=== PATIENT | male | born 1945 | race Caucasian/White ===

== ENCOUNTER → 2018-03-01 09:22 | Outpatient (REF) | payer MEDICARE, OTHER, SELFPAY ==
[2018-03-01 22:49] LABS: Anion Gap 9.6 mmol/L (3-11); BUN 14 mg/dL (7-18); CO2 28.4 mmol/L (21.0-32.0); Calcium 9.1 mg/dL (8.5-10.1); Chloride 105 mmol/L (98-107); Cholesterol 149 mg/dL (50-200); Estimated GFR 54.42 (mL/min/1.73m2); Glucose 92 mg/dL (70-100); HDL Cholesterol 56 mg/dL (40-60); LDL CHOLESTEROL 86 mg/dL (<100); Potassium 4.4 mmol/L (3.5-5.1); Sodium 143 mmol/L (136-145); Triglyceride 66 mg/dL (30-150)
[2018-03-04 10:47] LABS: PSA, Screening 0.8 ng/ml (0-6.5)
== END ==
LOC: NCHCN 09:22
PROVIDERS: PCP Internal Medicine; Visit Provider Internal Medicine
DX: Z80.42 Family history of malignant neoplasm of prostate (principal); Z12.5 Encounter for screening for malignant neoplasm of prostate; I34.0 Nonrheumatic mitral (valve) insufficiency; D12.6 Benign neoplasm of colon, unspecified; E78.5 Hyperlipidemia, unspecified
CPT/HCPCS: 80048; 80061; 83721; 84153

== ENCOUNTER 2019-12-09 09:00 | Outpatient (REF) | payer MEDICARE, OTHER, SELFPAY ==
[2019-12-09 21:26] LABS: Anion Gap 10.9 mmol/L (3-11); BUN 18 mg/dL (7-18); CO2 25.1 mmol/L (21.0-32.0); CREATININE 1.27 mg/dL (0.70-1.30); Calcium 9.2 mg/dL (8.5-10.1); Calculated LDL 162 mg/dL (<100); Chloride 106 mmol/L (98-107); Cholesterol 229 mg/dL (<200); Estimated GFR 55.75 (mL/min/1.73m2); Glucose 94 mg/dL (74-106); HDL Cholesterol 54 mg/dL (40-60); Potassium 4.3 mmol/L (3.5-5.1); Sodium 142 mmol/L (136-145); Triglyceride 65 mg/dL (<150)
== END 2019-12-09 09:20 ==
LOC: NCHCN 09:00
PROVIDERS: PCP Internal Medicine; Visit Provider Internal Medicine
DX: I10 Essential (primary) hypertension (principal); Z12.5 Encounter for screening for malignant neoplasm of prostate; Z80.42 Family history of malignant neoplasm of prostate
CPT/HCPCS: 80048; 80061

== ENCOUNTER 2020-06-01 22:17 | Outpatient (REF) | payer MEDICARE, OTHER, SELFPAY ==
[2020-06-01 22:59] LABS: Abs Immature Grans 0.01 10^3/uL (0.0-0.06); Absolute Basophil Count 0.04 10^3/uL (0.0-0.2); Absolute Eosinophil Count 0.24 10^3/uL (0.0-0.7); Absolute Lymphocyte Count 1.49 10^3/uL (1.2-3.4); Absolute Monocyte Count 0.46 10^3/uL (0.1-0.8); Absolute Neutrophil Count 2.43 10^3/uL (1.2-6.7); Basophils % 0.9; Eosinophils % 5.1; HCT 41.6 % (40.0-50.0); HGB 13.8 g/dL (13.5-17.5); Immature Grans % 0.2; Lymphocytes % 31.9; MCH 31.9 pg (27.0-33.0); MCHC 33.2 % (32.0-36.0); MCV 96.1 fL (80-95); MPV 9.5 fL (8.0-11.0); Monocytes % 9.9; Nucleated RBC 0 %; Platelet Count 218 10^3/uL (130-400); RBC 4.33 10^6/uL (4.36-5.78); RDW-SD 46.2 fL; WBC 4.67 10^3/uL (4.4-10.8)
== END 2020-06-01 22:37 ==
LOC: LBN 22:17
PROVIDERS: PCP Internal Medicine; Visit Provider Student in an Organized Health Care Education/Training Program
DX: E78.5 Hyperlipidemia, unspecified (principal); I50.9 Heart failure, unspecified; I48.91 Unspecified atrial fibrillation
CPT/HCPCS: 85025; 85610

== ENCOUNTER 2020-06-02 22:07 | Outpatient (REF) | payer MEDICARE, OTHER, SELFPAY ==
[2020-06-02 22:45] LABS: INR 1.1 (0.9-1.1); Prothrombin Time 10.8 sec (9.3-11.0)
== END 2020-06-02 22:27 ==
LOC: NCHCN 22:07
PROVIDERS: PCP Internal Medicine; Visit Provider Student in an Organized Health Care Education/Training Program
DX: I48.91 Unspecified atrial fibrillation (principal)
CPT/HCPCS: 85610

== ENCOUNTER 2020-12-08 14:24 | Outpatient (REF) | payer MEDICARE, OTHER, SELFPAY ==
[2020-12-08 14:53] LABS: BUN 17 mg/dL (7-18); CREATININE 1.2 mg/dL (0.70-1.30); Calcium 9.1 mg/dL (8.5-10.1); Chloride 106 mmol/L (98-107); Estimated GFR 59.35 (mL/min/1.73m2); Glucose 93 mg/dL (74-106); Potassium 4.1 mmol/L (3.5-5.1); Sodium 143 mmol/L (136-145)
== END 2020-12-08 14:25 | disposition home or self-care (01) ==
LOC: NCHCN 14:24
PROVIDERS: Internal Medicine; PCP Internal Medicine; Visit Provider Internal Medicine
DX: I50.9 Heart failure, unspecified (principal); Z85.47 Personal history of malignant neoplasm of testis; Z80.42 Family history of malignant neoplasm of prostate; Z12.5 Encounter for screening for malignant neoplasm of prostate
CPT/HCPCS: 80048; 84153

== ENCOUNTER 2021-12-26 16:01 | Outpatient (REF) | payer MEDICARE, OTHER, SELFPAY ==
[2021-12-26 15:07] LABS: BUN 18 mg/dL (7-18); CREATININE 1.3 mg/dL (0.70-1.30); Calcium 9.4 mg/dL (8.5-10.1); Chloride 101 mmol/L (98-107); Estimated GFR 53.96 (mL/min/1.73m2); Glucose 93 mg/dL (74-106); Potassium 4.1 mmol/L (3.5-5.1); Sodium 137 mmol/L (136-145)
== END 2021-12-26 16:02 | disposition home or self-care (01) ==
LOC: NCHCN 16:01
PROVIDERS: PCP Internal Medicine; Visit Provider Internal Medicine
DX: I50.9 Heart failure, unspecified (principal)
CPT/HCPCS: 80048

== ENCOUNTER 2023-01-12 15:21 | Outpatient (REF) | payer MEDICARE, SELFPAY ==
[2023-01-12 14:48] LABS: HCT 41.1 % (40.0-50.0); HGB 13.9 g/dL (13.5-17.5); MCH 32.7 pg (27.0-33.0); MCHC 33.8 % (32.0-36.0); MCV 97 fL (80-95); MPV 9.3 fL (8.0-11.0); Platelet Count 183 10^3/uL (130-400); RBC 4.25 10^6/uL (4.36-5.78); RDW-SD 45.9 fL; WBC 5.01 10^3/uL (4.4-10.8)
[2023-01-12 15:22] LABS: ALT 35 U/L (16-63); AST 31 U/L (15-37); Albumin 3.9 g/dL (3.4-5.0); Alkaline Phosphatase 52 U/L (46-116); Anion Gap 8.6 mmol/L (3-11); BUN 19 mg/dL (7-18); Bilirubin, Total 0.6 mg/dL (0.2-1.0); CO2 27.4 mmol/L (21.0-32.0); CREATININE 1.3 mg/dL (0.70-1.30); Calcium 9.2 mg/dL (8.5-10.1); Calculated LDL 110 mg/dL (<100); Chloride 106 mmol/L (98-107); Cholesterol 177 mg/dL (<200); Estimated GFR 57.29 (mL/min/1.73m2); Glucose 97 mg/dL (74-106); HDL Cholesterol 55 mg/dL (40-60); Potassium 4.1 mmol/L (3.5-5.1); Sodium 142 mmol/L (136-145); Triglyceride 63 mg/dL (<150)
== END 2023-01-12 15:22 | disposition home or self-care (01) ==
LOC: NCHCN 15:21
PROVIDERS: PCP Internal Medicine; Visit Provider Internal Medicine
DX: E78.5 Hyperlipidemia, unspecified (principal); N18.30 Chronic kidney disease, stage 3 unspecified; I48.0 Paroxysmal atrial fibrillation
CPT/HCPCS: 80053; 80061; 85027

== ENCOUNTER 2024-01-14 14:58 | Outpatient (REF) | payer MEDICARE, SELFPAY ==
[2024-01-14 14:05] LABS: HCT 40.9 % (40.0-50.0); HGB 13.7 g/dL (13.5-17.5); MCH 32.2 pg (27.0-33.0); MCHC 33.5 % (32.0-36.0); MCV 96 fL (80-95); MPV 8.9 fL (8.0-11.0); Platelet Count 187 10^3/uL (130-400); RBC 4.26 10^6/uL (4.36-5.78); RDW-SD 46.2 fL; WBC 5.29 10^3/uL (4.4-10.8)
[2024-01-14 14:16] LABS: BUN 17 mg/dL (7-18); CREATININE 1.2 mg/dL (0.70-1.30); Calcium 9.4 mg/dL (8.5-10.1); Calculated LDL 99 mg/dL (<100); Chloride 106 mmol/L (98-107); Cholesterol 169 mg/dL (<200); Estimated GFR 62.67 (mL/min/1.73m2); Glucose 101 mg/dL (74-106); HDL Cholesterol 59 mg/dL (40-60); Potassium 4.8 mmol/L (3.5-5.1); Sodium 143 mmol/L (136-145); Triglyceride 59 mg/dL (<150)
== END 2024-01-14 14:59 | disposition home or self-care (01) ==
LOC: NCHCN 14:58
PROVIDERS: PCP Internal Medicine; Visit Provider Internal Medicine
DX: N18.30 Chronic kidney disease, stage 3 unspecified (principal); E78.5 Hyperlipidemia, unspecified; I48.0 Paroxysmal atrial fibrillation
CPT/HCPCS: 80048; 80061; 85027

== ENCOUNTER 2025-01-19 09:58 | Outpatient (REF) | payer MEDICARE, SELFPAY ==
[2025-01-19 15:07] LABS: HCT 39.6 % (40.0-50.0); HGB 13.1 g/dL (13.5-17.5); MCH 32.0 pg (27.0-33.0); MCHC 33.1 % (32.0-36.0); MCV 97 fL (80-95); MPV 9.2 fL (8.0-11.0); Platelet Count 164 10^3/uL (130-400); RBC 4.09 10^6/uL (4.36-5.78); RDW 12.9 % (11.8-14.1); RDW-SD 46.1 fL; WBC 4.26 10^3/uL (4.4-10.8)
[2025-01-19 15:41] LABS: ALT 41 U/L (16-63); AST 31 U/L (15-37); Albumin 4.0 g/dL (3.4-5.0); Alkaline Phosphatase 51 U/L (46-116); Anion Gap 6.3 mmol/L (3-11); BUN 15 mg/dL (7-18); Bilirubin, Total 0.7 mg/dL (0.2-1.0); CO2 27.7 mmol/L (21.0-32.0); Calcium 9.4 mg/dL (8.5-10.1); Calculated LDL 92 mg/dL (<100); Chloride 105 mmol/L (98-107); Cholesterol 161 mg/dL (<200); Estimated GFR 69.14 (mL/min/1.73m2); Glucose 96 mg/dL (74-106); HDL Cholesterol 56 mg/dL (>or=40); Potassium 4.1 mmol/L (3.5-5.1); Sodium 139 mmol/L (136-145); Total Protein 6.9 g/dL (6.4-8.2); Triglyceride 69 mg/dL (<150)
== END 2025-01-19 09:59 | disposition home or self-care (01) ==
LOC: NCHCN 09:58
PROVIDERS: PCP Internal Medicine; Visit Provider Internal Medicine
DX: E78.5 Hyperlipidemia, unspecified (principal); Z00.00 Encounter for general adult medical examination without abnormal findings; N18.30 Chronic kidney disease, stage 3 unspecified
CPT/HCPCS: 80053; 80061; 85027

== ENCOUNTER 2025-01-26 14:08 | Outpatient (REF) | payer MEDICARE, SELFPAY ==
[2025-01-26 21:19] LABS: HCT 41.2 % (40.0-50.0); HGB 13.4 g/dL (13.5-17.5); MCH 32.1 pg (27.0-33.0); MCHC 32.5 % (32.0-36.0); MCV 99 fL (80-95); MPV 9.6 fL (8.0-11.0); Platelet Count 162 10^3/uL (130-400); RBC 4.18 10^6/uL (4.36-5.78); RDW 13.0 % (11.8-14.1); RDW-SD 47.3 fL; WBC 6.23 10^3/uL (4.4-10.8)
[2025-01-26 21:28] LABS: Iron 111 ug/dL (65-175); Total Iron Binding Capacity 348 ug/dL (250-450); Transferrin Sat 32 % (20-55)
[2025-01-26 22:04] LABS: Ferritin 93 ng/mL (26-388); Vitamin B12 1259 pg/mL (193-986)
== END 2025-01-26 14:09 | disposition home or self-care (01) ==
LOC: NCHCN 14:08
PROVIDERS: PCP Internal Medicine; Visit Provider Internal Medicine
DX: D64.9 Anemia, unspecified (principal)
CPT/HCPCS: 85027; 82607; 82728; 83540; 83550